=== PATIENT | male | born 1945 | race Asian ===

== ENCOUNTER → 2016-06-05 | Outpatient (CLI) | payer MEDICARE, OTHER ==
[~2016-06-05] MED LIST: ASPI-1093 PO; ATOR20TA86 PO; HYDR25TA PO; METF500T4 PO
== END | disposition home or self-care (01) ==
LOC: HBOWC 10:47
PROVIDERS: ATTEND Emergency Medicine
DX: L59.8 Other specified disorders of the skin and subcutaneous tissue related to radiation (principal); M27.2 Inflammatory conditions of jaws; E11.9 Type 2 diabetes mellitus without complications; I10 Essential (primary) hypertension; W88.8XXD Exposure to other ionizing radiation, subsequent encounter

== ENCOUNTER → 2016-06-12 | Outpatient (CLI) | payer MEDICARE, OTHER | END | disposition home or self-care (01) | LOC: HBOWC 09:46 | PROVIDERS: ATTEND Emergency Medicine | DX: L59.8 Other specified disorders of the skin and subcutaneous tissue related to radiation (principal); I10 Essential (primary) hypertension; E11.9 Type 2 diabetes mellitus without complications; M27.2 Inflammatory conditions of jaws; Z85.828 Personal history of other malignant neoplasm of skin; W88.8XXD Exposure to other ionizing radiation, subsequent encounter ==

== ENCOUNTER → 2016-06-14 | Outpatient (CLI) | payer MEDICARE, OTHER | END | disposition home or self-care (01) | LOC: HBOWC 09:42 | PROVIDERS: ATTEND Emergency Medicine | DX: L59.8 Other specified disorders of the skin and subcutaneous tissue related to radiation (principal); I10 Essential (primary) hypertension; M27.2 Inflammatory conditions of jaws; Z85.828 Personal history of other malignant neoplasm of skin; W88.8XXD Exposure to other ionizing radiation, subsequent encounter ==

== ENCOUNTER → 2016-06-15 | Outpatient (CLI) | payer MEDICARE, OTHER ==
[2016-06-15 11:09] VITALS: BP 146/79
== END | disposition home or self-care (01) ==
LOC: HBOWC 10:31
PROVIDERS: ATTEND Emergency Medicine
DX: M27.2 Inflammatory conditions of jaws (principal); L59.8 Other specified disorders of the skin and subcutaneous tissue related to radiation; I25.10 Atherosclerotic heart disease of native coronary artery without angina pectoris; I10 Essential (primary) hypertension; E11.9 Type 2 diabetes mellitus without complications; Z85.828 Personal history of other malignant neoplasm of skin; W88.8XXD Exposure to other ionizing radiation, subsequent encounter

== ENCOUNTER → 2016-06-20 | Outpatient (CLI) | payer MEDICARE, OTHER ==
[2016-06-20 10:29] VITALS: BP 129/62
== END | disposition home or self-care (01) ==
LOC: HBOWC 09:08
PROVIDERS: ATTEND Emergency Medicine Undersea and Hyperbaric Medicine
DX: L59.8 Other specified disorders of the skin and subcutaneous tissue related to radiation (principal); M27.2 Inflammatory conditions of jaws; I10 Essential (primary) hypertension; E11.9 Type 2 diabetes mellitus without complications; C11.9 Malignant neoplasm of nasopharynx, unspecified; W88.8XXD Exposure to other ionizing radiation, subsequent encounter

== ENCOUNTER → 2016-06-21 | Outpatient (CLI) | payer MEDICARE, OTHER | END | disposition home or self-care (01) | LOC: HBOWC 10:16 | PROVIDERS: ATTEND Emergency Medicine | DX: L59.8 Other specified disorders of the skin and subcutaneous tissue related to radiation (principal); M27.2 Inflammatory conditions of jaws; I10 Essential (primary) hypertension; I25.118 Atherosclerotic heart disease of native coronary artery with other forms of angina pectoris; E11.9 Type 2 diabetes mellitus without complications; Z85.819 Personal history of malignant neoplasm of unspecified site of lip, oral cavity, and pharynx; W88.8XXD Exposure to other ionizing radiation, subsequent encounter ==

== ENCOUNTER → 2016-06-23 | Outpatient (CLI) | payer MEDICARE, OTHER | END | disposition home or self-care (01) | LOC: HBOWC 09:58 | PROVIDERS: ATTEND Emergency Medicine | DX: L59.8 Other specified disorders of the skin and subcutaneous tissue related to radiation (principal); M27.2 Inflammatory conditions of jaws; I10 Essential (primary) hypertension; E11.9 Type 2 diabetes mellitus without complications; Z85.818 Personal history of malignant neoplasm of other sites of lip, oral cavity, and pharynx; I25.10 Atherosclerotic heart disease of native coronary artery without angina pectoris; W88.8XXD Exposure to other ionizing radiation, subsequent encounter ==

== ENCOUNTER → 2016-06-26 | Outpatient (CLI) | payer MEDICARE, OTHER | END | disposition home or self-care (01) | LOC: HBOWC 10:26 | PROVIDERS: ATTEND Emergency Medicine | DX: L59.8 Other specified disorders of the skin and subcutaneous tissue related to radiation (principal); M27.2 Inflammatory conditions of jaws; I10 Essential (primary) hypertension; Z85.819 Personal history of malignant neoplasm of unspecified site of lip, oral cavity, and pharynx; W88.8XXD Exposure to other ionizing radiation, subsequent encounter ==

== ENCOUNTER → 2016-06-27 | Outpatient (CLI) | payer MEDICARE, OTHER | END | disposition home or self-care (01) | LOC: HBOWC 10:30 | PROVIDERS: ATTEND Emergency Medicine | DX: L59.8 Other specified disorders of the skin and subcutaneous tissue related to radiation (principal); I10 Essential (primary) hypertension; E11.69 Type 2 diabetes mellitus with other specified complication; M27.2 Inflammatory conditions of jaws; Z85.819 Personal history of malignant neoplasm of unspecified site of lip, oral cavity, and pharynx; W88.8XXD Exposure to other ionizing radiation, subsequent encounter ==

== ENCOUNTER → 2016-06-28 | Outpatient (CLI) | payer MEDICARE, OTHER | END | disposition home or self-care (01) | LOC: HBOWC 10:00 | PROVIDERS: ATTEND Emergency Medicine | DX: L59.8 Other specified disorders of the skin and subcutaneous tissue related to radiation (principal); M27.2 Inflammatory conditions of jaws; I10 Essential (primary) hypertension; E11.9 Type 2 diabetes mellitus without complications; Z85.819 Personal history of malignant neoplasm of unspecified site of lip, oral cavity, and pharynx; W88.8XXD Exposure to other ionizing radiation, subsequent encounter ==

== ENCOUNTER → 2016-06-29 | Outpatient (CLI) | payer MEDICARE, OTHER ==
[2016-06-29 09:13] VITALS: BP 154/82
== END | disposition home or self-care (01) ==
LOC: HBOWC 08:50
PROVIDERS: ATTEND Emergency Medicine
DX: L59.8 Other specified disorders of the skin and subcutaneous tissue related to radiation (principal); M27.2 Inflammatory conditions of jaws; I10 Essential (primary) hypertension; E11.9 Type 2 diabetes mellitus without complications; Z85.819 Personal history of malignant neoplasm of unspecified site of lip, oral cavity, and pharynx; W88.8XXD Exposure to other ionizing radiation, subsequent encounter

== ENCOUNTER → 2016-06-30 | Outpatient (CLI) | payer MEDICARE, OTHER | END | disposition home or self-care (01) | LOC: HBOWC 10:46 | PROVIDERS: ATTEND Emergency Medicine | DX: M27.2 Inflammatory conditions of jaws (principal); L59.8 Other specified disorders of the skin and subcutaneous tissue related to radiation; E11.9 Type 2 diabetes mellitus without complications; I25.10 Atherosclerotic heart disease of native coronary artery without angina pectoris; Z85.828 Personal history of other malignant neoplasm of skin; Z85.819 Personal history of malignant neoplasm of unspecified site of lip, oral cavity, and pharynx; W88.8XXD Exposure to other ionizing radiation, subsequent encounter ==